=== PATIENT | male | born 1960 | race Two or more races ===

== ENCOUNTER → 2020-06-19 | Outpatient (CLI) | payer OTHER ==
[~2020-06-19] VITALS: Ht 175.3 cm; Wt 92.5 kg
[~2020-06-19] MED LIST: ATEN100T PO; CITA-77 PO; CLON1TAB10 PO; GLIP10TA9 PO; LISI40TA11 PO; METF-370 PO; NAPR375T27 PO; RIS1T PO; SIMV-8 PO; SULF400T11 PO; TRAZ-181 PO
== END | disposition home or self-care (01) ==
LOC: SUR 10:15 → EDSTATUS 06-25 08:30
PROVIDERS: ATTEND Surgery
DX: Z01.818 Encounter for other preprocedural examination (principal); E66.9 Obesity, unspecified; E11.9 Type 2 diabetes mellitus without complications; Z98.890 Other specified postprocedural states; Z68.30 Body mass index [BMI] 30.0-30.9, adult; Z20.828 Contact with and (suspected) exposure to other viral communicable diseases; Z79.899 Other long term (current) drug therapy